=== PATIENT | female | born 1930 | race Caucasian/White ===

== ENCOUNTER 2016-11-02 10:34 | Inpatient (IN) | payer OTHER ==
[~2016-11-02] VITALS: Ht 162.6 cm; Wt 60.0 kg
[~2016-11-02 10:34] MED LIST: CLON0.2T OR; CLOP75TA28; DOCU-99 OR; FURO40TA OR; IBUP200C14 OR; KLOR CON; METO25TA3; PANTPAK; [UNRECOGNIZED DRUG - CODE] OR
[2016-11-02 11:04] LABS: Basophils # (auto) 0 uL; Eosinophils # (auto) 0.1 uL; Eosinophils % (auto) 0.6 % (0.0-7.0); Hematocrit 30.3 % (36.0-46.0); Hemoglobin 9.9 g/dL (12.2-16.2); Lymphocytes # (auto) 1.1 uL; Lymphocytes % (auto) 10.7 % (10.0-50.0); Mean Corpuscular Hemoglobin 28.5 pg (28.0-32.0); Mean Corpuscular Hgb Conc. 32.6 g/dL (32.0-36.0); Mean Corpuscular Volume 87.4 fL (80.0-100.0); Monocytes # (auto) 0.6 uL; Monocytes % (auto) 5.6 % (0.0-12.0); Neutrophils # (auto) 8.2 uL; Neutrophils % (auto) 83.1 % (37.0-80.0); Platelet Count (auto) 496 10^3/uL (140-450); Red Cell Distribution Width 16.8 % (11.6-16.0); White Blood Cell 9.9 10^3/uL (4.4-10.8)
[2016-11-02 11:26] LABS: Albumin 2.8 g/dL (3.4-5.0); BUN/Creatinine Ratio 18.2; Bilirubin, Total 0.4 mg/dL (0.2-1.0); Calcium 8.8 mg/dL (8.5-10.1); Magnesium 1.9 mg/dL (1.6-2.6)
[2016-11-02] MEDS ORDERED: cefTRIAXone 1GM/50ML D5W 50 ML IV ONE (14:00)
[2016-11-02] MEDS: SODIUM CHLORIDE 0.9% 1,000 ML IV SCH ×3 (14:10→22:20)
[2016-11-02] MEDS ORDERED: NITROGLYCERIN 0.4 MG SL TAB SL PRN (14:15)
[2016-11-02] MEDS ORDERED: TEMAZEPAM 15 MG CAP PO PRN (14:15)
[2016-11-02] MEDS ORDERED: ACETAMINOPHEN 500 MG TAB PO PRN (14:15)
[2016-11-02] MEDS ORDERED: PROMETHAZINE HCL 25 MG/ML 1ML IV PRN (14:15)
[2016-11-02] MEDS ORDERED: OSELTAMIVIR 75 MG CAP PO ONE (14:15)
[2016-11-02] MEDS ORDERED: MORPHINE SULF INJ 2 MG/ML SYRINGE 1ML IV PRN (14:15)
[2016-11-02] MEDS ORDERED: LORazepam 0.5 MG TAB PO PRN (14:15)
[2016-11-02] MEDS ORDERED: ALBUTEROL SULF 2.5 MG/0.5ML(0.5%) NEB SOLN NEB PRN (14:15)
[2016-11-02] MEDS ORDERED: AZITHROMYCIN 500MG/D5W 250ML 250 ML IV ONE ×2 (14:30→16:00)
[2016-11-02] MEDS ORDERED: CLINDAMYCIN 600MG IV 50 ML IV ONE (14:45)
[2016-11-02] MEDS ORDERED: ASPirin 81 mg TAB PO ONE (15:00)
[2016-11-02] MEDS ORDERED: CLOPIDOGREL BISULFATE 75 MG TAB PO ONE (15:00)
[2016-11-02 15:11] LABS: Urine Bilirubin Negative (Negative); Urine Blood Negative /uL (Negative); Urine Color Yellow (Yellow); Urine Glucose Normal (Normal); Urine Hyaline Cast FEW /lpf (0 - 2); Urine Ketone Negative (Negative); Urine Nitrite Negative (Negative); Urine RBC <1 /hpf (0 - 4); Urine Urobilinogen Normal (Negative); Urine pH 5.5 (5.0-8.0)
[2016-11-02] MEDS ORDERED: PANTOPRAZOLE 40 MG TAB PO ONE (15:15)
[2016-11-02] MEDS ORDERED: ENOXAPARIN SOD 40 MG/0.4 ML SYRINGE SC ONE (15:15)
[2016-11-02] MEDS ORDERED: METOPROLOL TARTRATE 25 MG TAB PO ONE (15:15)
[2016-11-02] MEDS: cloNIDine HCL 0.1 MG TAB PO SCH (15:52)
[2016-11-02] MEDS: OSELTAMIVIR 30 MG CAP PO SCH (16:00)
[2016-11-02] MEDS: IPRATROPIUM BROM 0.5 MG/2.5ML INH SOL NEB SCH (18:00)
[2016-11-02] MEDS: ALBUTEROL SULF 2.5 MG/0.5ML(0.5%) NEB SOLN NEB SCH (18:00)
[2016-11-02] MEDS: DOCUSATE SOD 100 MG CAP PO SCH (18:00)
[2016-11-02 18:47] VITALS: BP 117/88
[2016-11-02 22:00] VITALS: BP 140/74
[2016-11-02] MEDS ORDERED: OSELTAMIVIR 75 MG CAP PO SCH (22:00)
[2016-11-02] MEDS: CLINDAMYCIN 600MG IV 50 ML IV SCH (22:19)
[2016-11-02] MEDS: METOPROLOL TARTRATE 25 MG TAB PO SCH (22:20)
[2016-11-03] VITALS (7 sets, daily range): BP systolic 101–153; BP diastolic 53–74
[2016-11-03] MEDS: IPRATROPIUM BROM 0.5 MG/2.5ML INH SOL NEB SCH ×4 (00:21→19:11)
[2016-11-03] MEDS: ALBUTEROL SULF 2.5 MG/0.5ML(0.5%) NEB SOLN NEB SCH ×4 (00:21→19:11)
[2016-11-03] MEDS: CLINDAMYCIN 600MG IV 50 ML IV SCH (05:52)
[2016-11-03 06:05] LABS: Basophils # (auto) 0 uL; Basophils % (auto) 0.1 % (0.0-2.0); DEFINITIVE VIEW TRANSMISSION; Eosinophils # (auto) 0 uL; Eosinophils % (auto) 0.1 % (0.0-7.0); Hematocrit 24.9 % (36.0-46.0); Hemoglobin 8.1 g/dL (12.2-16.2); Lymphocytes # (auto) 0.9 uL; Mean Corpuscular Hemoglobin 28.5 pg (28.0-32.0); Mean Corpuscular Hgb Conc. 32.4 g/dL (32.0-36.0); Mean Corpuscular Volume 87.8 fL (80.0-100.0); Mean Platelet Volume 6.7 fL (7.4-10.4); Monocytes # (auto) 0.6 uL; Monocytes % (auto) 7.5 % (0.0-12.0); Neutrophils # (auto) 6.8 uL; Neutrophils % (auto) 81.3 % (37.0-80.0); Platelet Count (auto) 388 10^3/uL (140-450); White Blood Cell 8.4 10^3/uL (4.4-10.8)
[2016-11-03 06:46] LABS: Albumin 2.3 g/dL (3.4-5.0); Bilirubin, Total 0.4 mg/dL (0.2-1.0); Calcium 8.1 mg/dL (8.5-10.1); Potassium 3.7 mmol/L (3.5-5.1); Total Protein 5.8 g/dL (6.4-8.2)
[2016-11-03] MEDS: DOCUSATE SOD 100 MG CAP PO SCH ×3 (08:00→18:00)
[2016-11-03] MEDS: cloNIDine HCL 0.1 MG TAB PO SCH (10:00)
[2016-11-03] MEDS: CLOPIDOGREL BISULFATE 75 MG TAB PO SCH (10:29)
[2016-11-03] MEDS: ENOXAPARIN SOD 40 MG/0.4 ML SYRINGE SC SCH (10:29)
[2016-11-03] MEDS: cefTRIAXone 1GM/50ML D5W 50 ML IV SCH (10:29)
[2016-11-03] MEDS: ASPirin 81 mg TAB PO SCH (10:30)
[2016-11-03] MEDS: METOPROLOL TARTRATE 25 MG TAB PO SCH ×2 (10:30→21:53)
[2016-11-03] MEDS: HYDROcodone-ACET 5/325MG TAB PO PRN (10:31)
[2016-11-03] MEDS: PANTOPRAZOLE 40 MG TAB PO SCH (10:31)
[2016-11-03] MEDS: AZITHROMYCIN 500MG/D5W 250ML 250 ML IV SCH (11:27)
[2016-11-03] MEDS: SODIUM CHLORIDE 0.9% 1,000 ML IV SCH (14:10)
[2016-11-03] MEDS: OSELTAMIVIR 30 MG CAP PO SCH (16:00)
[2016-11-03] MEDS: PRO-STAT 64 30ML PO SCH (18:00)
[2016-11-03] MEDS: BOOST PLUS 8 ounce PO SCH (18:10)
[2016-11-03] MEDS: DIGOXIN (250MCG/ML) 2 ML AMPULE IV SCH (19:37)
[2016-11-04] MEDS: ALBUTEROL SULF 2.5 MG/0.5ML(0.5%) NEB SOLN NEB SCH ×4 (00:43→18:00)
[2016-11-04] MEDS: IPRATROPIUM BROM 0.5 MG/2.5ML INH SOL NEB SCH ×4 (00:44→18:00)
[2016-11-04] MEDS: DIGOXIN (250MCG/ML) 2 ML AMPULE IV SCH ×2 (00:45→05:57)
[2016-11-04 05:00] VITALS: BP 143/75
[2016-11-04] MEDS: SODIUM CHLORIDE 0.9% 1,000 ML IV SCH ×2 (05:57→17:14)
[2016-11-04] MEDS: HYDROcodone-ACET 5/325MG TAB PO PRN ×2 (05:58→17:58)
[2016-11-04 06:03] LABS: Basophils # (auto) 0 uL; Basophils % (auto) 0.1 % (0.0-2.0); DEFINITIVE VIEW TRANSMISSION; Eosinophils # (auto) 0 uL; Eosinophils % (auto) 0.3 % (0.0-7.0); Hematocrit 24.7 % (36.0-46.0); Hemoglobin 8.1 g/dL (12.2-16.2); Lymphocytes # (auto) 1.1 uL; Lymphocytes % (auto) 13.5 % (10.0-50.0); Mean Corpuscular Hgb Conc. 32.7 g/dL (32.0-36.0); Mean Corpuscular Volume 88.6 fL (80.0-100.0); Mean Platelet Volume 7.3 fL (7.4-10.4); Monocytes # (auto) 0.7 uL; Neutrophils # (auto) 6.2 uL; Neutrophils % (auto) 77.1 % (37.0-80.0); Platelet Count (auto) 360 10^3/uL (140-450); Red Cell Distribution Width 17.5 % (11.6-16.0)
[2016-11-04 06:22] LABS: INR 1.14 (0.9-1.15); Prothrombin Time 11.7 sec (9.37-12.3)
[2016-11-04 06:35] LABS: BUN/Creatinine Ratio 21.5; Magnesium 1.9 mg/dL (1.6-2.6); Potassium 3.6 mmol/L (3.5-5.1)
[2016-11-04 08:00] VITALS: BP 135/68
[2016-11-04] MEDS: PRO-STAT 64 30ML PO SCH ×2 (08:00→18:00)
[2016-11-04] MEDS: BOOST PLUS 8 ounce PO SCH ×3 (08:00→18:00)
[2016-11-04] MEDS: cefTRIAXone 1GM/50ML D5W 50 ML IV SCH (08:29)
[2016-11-04] MEDS: DOCUSATE SOD 100 MG CAP PO SCH ×3 (08:29→17:58)
[2016-11-04 09:00] VITALS: BP 135/68
[2016-11-04] MEDS: ASPirin 81 mg TAB PO SCH (09:52)
[2016-11-04] MEDS: PANTOPRAZOLE 40 MG TAB PO SCH (09:53)
[2016-11-04] MEDS: METOPROLOL TARTRATE 25 MG TAB PO SCH ×2 (09:53→22:10)
[2016-11-04] MEDS: cloNIDine HCL 0.1 MG TAB PO SCH (09:53)
[2016-11-04] MEDS: DIGOXIN 0.25 MG TAB PO SCH (09:53)
[2016-11-04] MEDS: CLOPIDOGREL BISULFATE 75 MG TAB PO SCH (09:53)
[2016-11-04] MEDS ORDERED: OSELTAMIVIR 30 MG CAP PO SCH (10:00)
[2016-11-04] MEDS: ENOXAPARIN SOD 40 MG/0.4 ML SYRINGE SC SCH (10:01)
[2016-11-04] MEDS: AZITHROMYCIN 500MG/D5W 250ML 250 ML IV SCH (10:02)
[2016-11-04] MEDS: MORPHINE SULF INJ 2 MG/ML SYRINGE 1ML IV PRN ×2 (12:28→22:11)
[2016-11-04 13:00] VITALS: BP 111/62
[2016-11-04 17:00] VITALS: BP 118/53
[2016-11-04 22:00] VITALS: BP 137/54
[2016-11-05] MEDS: IPRATROPIUM BROM 0.5 MG/2.5ML INH SOL NEB SCH ×4 (00:50→20:12)
[2016-11-05] MEDS: ALBUTEROL SULF 2.5 MG/0.5ML(0.5%) NEB SOLN NEB SCH ×4 (00:50→20:12)
[2016-11-05] MEDS: MORPHINE SULF INJ 2 MG/ML SYRINGE 1ML IV PRN ×4 (02:11→20:01)
[2016-11-05 05:30] VITALS: BP 144/58
[2016-11-05 05:43] LABS: Basophils # (auto) 0 uL; Basophils % (auto) 0.3 % (0.0-2.0); DEFINITIVE VIEW TRANSMISSION; Eosinophils # (auto) 0.1 uL; Eosinophils % (auto) 0.8 % (0.0-7.0); Hematocrit 25.1 % (36.0-46.0); Hemoglobin 8.1 g/dL (12.2-16.2); Lymphocytes # (auto) 1.2 uL; Lymphocytes % (auto) 13.5 % (10.0-50.0); Mean Corpuscular Hgb Conc. 32.3 g/dL (32.0-36.0); Mean Corpuscular Volume 89.8 fL (80.0-100.0); Mean Platelet Volume 7.1 fL (7.4-10.4); Monocytes # (auto) 0.8 uL; Monocytes % (auto) 8.5 % (0.0-12.0); Neutrophils # (auto) 6.9 uL; Neutrophils % (auto) 76.9 % (37.0-80.0); Platelet Count (auto) 356 10^3/uL (140-450); Red Cell Distribution Width 16.9 % (11.6-16.0); White Blood Cell 8.9 10^3/uL (4.4-10.8)
[2016-11-05] MEDS: SODIUM CHLORIDE 0.9% 1,000 ML IV SCH ×2 (06:10→18:28)
[2016-11-05 06:11] LABS: Calcium 8.3 mg/dL (8.5-10.1); Magnesium 2.1 mg/dL (1.6-2.6); Phosphorus 2.1 mg/dL (2.5-4.90); Potassium 3.8 mmol/L (3.5-5.1)
[2016-11-05 08:00] VITALS: BP 132/75
[2016-11-05] MEDS: PRO-STAT 64 30ML PO SCH ×2 (08:31→17:32)
[2016-11-05] MEDS: BOOST PLUS 8 ounce PO SCH ×3 (08:31→17:33)
[2016-11-05] MEDS: cefTRIAXone 1GM/50ML D5W 50 ML IV SCH (08:42)
[2016-11-05] MEDS: DOCUSATE SOD 100 MG CAP PO SCH ×3 (08:42→17:56)
[2016-11-05] MEDS ORDERED: NEUTRA-PHOS TABLET PO ONE (09:15)
[2016-11-05] MEDS: AZITHROMYCIN 500MG/D5W 250ML 250 ML IV SCH (10:20)
[2016-11-05] MEDS: DIGOXIN 0.25 MG TAB PO SCH (10:21)
[2016-11-05] MEDS: cloNIDine HCL 0.1 MG TAB PO SCH (10:21)
[2016-11-05] MEDS: ASPirin 81 mg TAB PO SCH (10:21)
[2016-11-05] MEDS: ENOXAPARIN SOD 40 MG/0.4 ML SYRINGE SC SCH (10:22)
[2016-11-05] MEDS: PANTOPRAZOLE 40 MG TAB PO SCH (10:22)
[2016-11-05] MEDS: CLOPIDOGREL BISULFATE 75 MG TAB PO SCH (10:22)
[2016-11-05] MEDS: METOPROLOL TARTRATE 25 MG TAB PO SCH ×2 (10:23→21:57)
[2016-11-05 13:00] VITALS: BP 145/92
[2016-11-05 17:00] VITALS: BP 147/65
[2016-11-05 22:00] VITALS: BP 139/62
[2016-11-06] MEDS: ALBUTEROL SULF 2.5 MG/0.5ML(0.5%) NEB SOLN NEB SCH ×3 (01:18→11:54)
[2016-11-06] MEDS: IPRATROPIUM BROM 0.5 MG/2.5ML INH SOL NEB SCH ×3 (01:18→11:53)
[2016-11-06 02:24] VITALS: BP 139/62
[2016-11-06] MEDS: MORPHINE SULF INJ 2 MG/ML SYRINGE 1ML IV PRN ×4 (03:58→16:06)
[2016-11-06 05:21] LABS: Basophils # (auto) 0 uL; Basophils % (auto) 0.2 % (0.0-2.0); DEFINITIVE VIEW TRANSMISSION; Eosinophils # (auto) 0 uL; Eosinophils % (auto) 0.2 % (0.0-7.0); Hemoglobin 8.5 g/dL (12.2-16.2); Lymphocytes # (auto) 1.3 uL; Lymphocytes % (auto) 12.4 % (10.0-50.0); Mean Corpuscular Hgb Conc. 32.6 g/dL (32.0-36.0); Mean Corpuscular Volume 89.1 fL (80.0-100.0); Mean Platelet Volume 7.2 fL (7.4-10.4); Monocytes # (auto) 0.8 uL; Monocytes % (auto) 7.6 % (0.0-12.0); Neutrophils # (auto) 8.2 uL; Neutrophils % (auto) 79.6 % (37.0-80.0); Platelet Count (auto) 378 10^3/uL (140-450); Red Cell Distribution Width 16.9 % (11.6-16.0); White Blood Cell 10.3 10^3/uL (4.4-10.8)
[2016-11-06 05:30] VITALS: BP 123/65
[2016-11-06 05:40] LABS: Calcium 8.6 mg/dL (8.5-10.1); Magnesium 2.3 mg/dL (1.6-2.6); Phosphorus 2.3 mg/dL (2.5-4.90); Potassium 3.8 mmol/L (3.5-5.1)
[2016-11-06] MEDS: DOCUSATE SOD 100 MG CAP PO SCH ×2 (08:07→12:06)
[2016-11-06] MEDS: BOOST PLUS 8 ounce PO SCH ×2 (08:07→11:51)
[2016-11-06] MEDS: PRO-STAT 64 30ML PO SCH (08:08)
[2016-11-06] MEDS: SODIUM CHLORIDE 0.9% 1,000 ML IV SCH (08:32)
[2016-11-06] MEDS: cefTRIAXone 1GM/50ML D5W 50 ML IV SCH (08:33)
[2016-11-06 09:19] VITALS: BP 153/64
[2016-11-06] MEDS: PANTOPRAZOLE 40 MG TAB PO SCH (09:39)
[2016-11-06] MEDS: CLOPIDOGREL BISULFATE 75 MG TAB PO SCH (09:39)
[2016-11-06] MEDS: ASPirin 81 mg TAB PO SCH (10:42)
[2016-11-06] MEDS: AZITHROMYCIN 500MG/D5W 250ML 250 ML IV SCH (10:42)
[2016-11-06] MEDS: DIGOXIN 0.25 MG TAB PO SCH (10:43)
[2016-11-06] MEDS: METOPROLOL TARTRATE 25 MG TAB PO SCH (10:43)
[2016-11-06] MEDS: cloNIDine HCL 0.1 MG TAB PO SCH (10:43)
[2016-11-06] MEDS: ENOXAPARIN SOD 40 MG/0.4 ML SYRINGE SC SCH (10:44)
[2016-11-06] MEDS ORDERED: Nutritional Supplements PO (10:54)
[2016-11-06] MEDS ORDERED: LEVO500T3 PO (10:54)
[2016-11-06] MEDS ORDERED: DIGO0.1262 PO (10:54)
[2016-11-06] MEDS ORDERED: AMINLIQ2 PO (10:54)
[2016-11-06] MEDS ORDERED: ALB5IS NEB (10:54)
[2016-11-06] MEDS ORDERED: ASPI81CH43 PO (10:54)
[2016-11-06 13:50] VITALS: BP 163/70
== END 2016-11-06 16:33 | DRG 871 ==
LOC: EDBD 10:34 → ER 10:36 → TELE 10:37 → TELE-CENTR 16:05
PROVIDERS: ADMIT Internal Medicine; ATTEND Nurse Practitioner Acute Care
DX: A41.9 Sepsis, unspecified organism (principal); J18.9 Pneumonia, unspecified organism; N17.0 Acute kidney failure with tubular necrosis; I50.30 Unspecified diastolic (congestive) heart failure; I13.0 Hypertensive heart and chronic kidney disease with heart failure and stage 1 through stage 4 chronic kidney disease, or unspecified chronic kidney disease; E86.0 Dehydration; I48.91 Unspecified atrial fibrillation; L89.90 Pressure ulcer of unspecified site, unspecified stage; D63.8 Anemia in other chronic diseases classified elsewhere; F32.9 Major depressive disorder, single episode, unspecified; F41.9 Anxiety disorder, unspecified; N18.3 Chronic kidney disease, stage 3 (moderate); R62.7 Adult failure to thrive; I25.10 Atherosclerotic heart disease of native coronary artery without angina pectoris; Z74.01 Bed confinement status; Z86.73 Personal history of transient ischemic attack (TIA), and cerebral infarction without residual deficits; Z90.49 Acquired absence of other specified parts of digestive tract; Z23 Encounter for immunization
CPT/HCPCS: 36415; 51702; 71010; 74000; 80048; 80053; 80061; 81001; 83036; 83735; 84100; 84443; 84484; 85025; 85610; 85652; 87040; 87045; 87077; 87081; 87186; 87205; 87400; 87493; 87899; 93005; 94640; 96365; 97001; G9035; J0696; J3490